=== PATIENT | male | born 1950 | race Caucasian/White ===

== ENCOUNTER → 2021-02-07 | Outpatient (CLI) | payer MEDICARE ==
--- NOTE | 2021-02-07 15:06 | XR ---
EXAMINATION TYPE: XR chest 2V DATE OF EXAM: 02/07/2021 COMPARISON: Chest x-ray December 04, 2014 HISTORY: Cough. TECHNIQUE: Frontal and lateral views of the chest are obtained. FINDINGS: There is some chronic emphysematous and parenchymal change without suspicious new focal ai r space opacity, pleural effusion, or pneumothorax seen. The cardiac silhouette size is stable and m ildly enlarged with slightly ectatic and atherosclerotic thoracic aorta. The osseous structures are intact. IMPRESSION: Mild cardiomegaly and chronic emphysematous change without acute pulmonary process.
== END | disposition home or self-care (01) ==
LOC: RADXRMAIN 14:29
PROVIDERS: ATTEND Family Medicine
DX: I51.7 Cardiomegaly (principal)
CPT/HCPCS: 71046